=== PATIENT | male | born 1980 | race Caucasian/White ===

== ENCOUNTER → 2020-08-11 | Outpatient (CLI) | payer BC ==
[2020-08-11 15:13] LABS: ALBUMIN 4.4 g/dL (3.5-5.0); POTASSIUM 4.1 mmol/L (3.5-5.1)
[2020-08-11 15:15] LABS: CALCIUM 9.1 mg/dL (8.3-10.5)
[2020-08-11 15:16] LABS: TOTAL PROTEIN 7.2 g/dL (6.4-8.3)
[2020-08-11 15:18] LABS: TOTAL BILIRUBIN 0.2 mg/dL (0.2-1.2)
== END ==
LOC: LAB 14:49
PROVIDERS: Internal Medicine
DX: M79.89 Other specified soft tissue disorders (principal); M65.80 Other synovitis and tenosynovitis, unspecified site

== ENCOUNTER → 2021-03-12 | Outpatient (CLI) | payer BC ==
[2021-03-12 17:31] LABS: MEAN CORPUSCULAR HEMOGLOBIN 32 pg (27-31); RED CELL DISTRIBUTION WIDTH 11.8 % (11.5-14.5)
[2021-03-12 17:39] LABS: BASO # 0.04 (0.02-0.10); EOS # 0.08 (0.04-0.40); EOS % 0.8 % (0.0-4.0); HEMATOCRIT 44.8 % (42.0-52.0); HEMOGLOBIN 15.4 g/dL (13.5-18.0); LYMPH# 2.69 (1.50-4.00); MEAN CELL VOLUME 93 fl (78-100); MEAN CORPUSCULAR HGB CONC 34 g/dL (33-37); MEAN PLATELET VOLUME 9.9 fl (7.4-10.4); MONO # 0.55 (0.20-0.80); NEU # 7.03 (1.40-6.50); PLATELET COUNT 220 K/mm3 (130-400); RED BLOOD COUNT 4.82 M/mm3 (4.20-5.60); WHITE BLOOD COUNT 10.4 K/mm3 (4.8-10.8)
[2021-03-12 17:46] LABS: ALBUMIN 4.5 g/dL (3.5-5.0)
[2021-03-12 17:47] LABS: CALCIUM 9.3 mg/dL (8.3-10.5)
[2021-03-12 17:49] LABS: TOTAL PROTEIN 7.5 g/dL (6.4-8.3)
[2021-03-12 17:50] LABS: TOTAL BILIRUBIN 0.3 mg/dL (0.2-1.2)
== END ==
LOC: LAB 17:18
PROVIDERS: Internal Medicine
DX: Z00.00 Encounter for general adult medical examination without abnormal findings (principal)

== ENCOUNTER → 2022-03-14 | Outpatient (CLI) | payer OTHER ==
[2022-03-14 10:05] LABS: BASO # 0.05 K/mm3 (0.02-0.10); EOS # 0.15 K/mm3 (0.04-0.40); EOS % 2.1 % (0.0-4.0); HEMATOCRIT 45.8 % (42.0-52.0); HEMOGLOBIN 15.2 g/dL (13.5-18.0); MEAN CELL VOLUME 96 fl (78-100); MEAN CORPUSCULAR HEMOGLOBIN 32 pg (27-31); MEAN CORPUSCULAR HGB CONC 33 g/dL (33-37); MEAN PLATELET VOLUME 10.1 fl (7.4-10.4); MONO # 0.47 K/mm3 (0.20-0.80); PLATELET COUNT 201 K/mm3 (130-400); RED BLOOD COUNT 4.79 M/mm3 (4.20-5.60); RED CELL DISTRIBUTION WIDTH 12.1 % (11.5-14.5); WHITE BLOOD COUNT 7.2 K/mm3 (4.8-10.8)
[2022-03-14 10:14] LABS: ALBUMIN 4.5 g/dL (3.5-5.0); POTASSIUM 3.9 mmol/L (3.5-5.1)
[2022-03-14 10:15] LABS: CALCIUM 9.6 mg/dL (8.3-10.5)
[2022-03-14 10:16] LABS: TOTAL PROTEIN 7.3 g/dL (6.4-8.3)
[2022-03-14 10:18] LABS: TOTAL BILIRUBIN 0.4 mg/dL (0.2-1.2)
== END ==
LOC: LAB 09:37
PROVIDERS: Internal Medicine
DX: Z00.00 Encounter for general adult medical examination without abnormal findings (principal); F41.1 Generalized anxiety disorder; R06.83 Snoring; Z28.39 Other underimmunization status